=== PATIENT | male | born 1975 | race Asian ===

== ENCOUNTER 2023-11-27 18:06 | Emergency (ER) | payer OTHER ==
[2023-11-27 18:58] VITALS: BP 132/91; PULSE 75; RESP 16; TEMP 98.5; BMI 26.9
[2023-11-27] MEDS ORDERED: ACETAMINOPHEN 1000 MG/100 ML BAG IVPB ONE (19:44)
[2023-11-27] MEDS ORDERED: LACTATED RINGERS SOLUTION 1000 ML INFUS.BAG IV ONE (19:45)
[2023-11-27] MEDS ORDERED: ACETAMINOPHEN INJECTION 100 ML IVPB ONE (19:59)
[2023-11-27] MEDS ORDERED: SODIUM CHLORIDE 0.9% 500 ML INFUS.BAG IV ONE (20:05)
[2023-11-27 20:07] LABS: HEMATOCRIT 55.4 % (35.4-49); HEMOGLOBIN 19.2 G/dL (11.7-16.9); MCHC 34.7 g/dl (32.0-35.9); MEAN CELL VOLUME 92.1 fl (80-96); MEAN PLT VOLUME 8.1 fl (7.5-11.1); PLATELET COUNT 239.5 10^3/uL (134-434); RBC 6.01 10^6/uL (4.00-5.60); RDW 13.4 % (11.9-15.9); WHITE BLOOD COUNT 7.9 10^3/uL (4.0-10.8)
[2023-11-27 20:27] LABS: ALBUMIN 5.1 g/dl (3.4-5.0); CALCIUM 10.5 mg/dl (8.5-10.1); CREATININE 1.1 mg/dl (0.6-1.3); POTASSIUM 3.8 mmol/L (3.5-5.1); TOT PROT 8.6 g/dl (6.4-8.2)
[2023-11-27 20:29] LABS: PLATELET ESTIMATE ADEQUATE
== END 2023-11-27 22:50 | disposition home or self-care (01) ==
LOC: FER 18:06
PROC: 3E033NZ Introduction of Analgesics, Hypnotics, Sedatives into Peripheral Vein, Percutaneous Approach (ICD-10-PCS; principal; 2023-11-27)
DX: R10.9 Unspecified abdominal pain (principal)
CPT/HCPCS: 36415; 74177-TC; 80053; 81003; 83690; 85027; 87086; 99285-25; Q9967